=== PATIENT | male | born 1960 | race Caucasian/White ===

== ENCOUNTER 2016-06-19 18:50 | Emergency (ER) | payer OTHER ==
[~2016-06-19] VITALS: Ht 177.8 cm; Wt 113.6 kg
[~2016-06-19 18:50] MED LIST: AMLOD-VALSA-HC1 EAC4 PO; ASPIR 8181 M1 PO; ASPIRIN EC325 MG PO; ATORVASTATIN CA80 MG PO; EFFIENT10 MG PO; EXFORGE HCT 101 EAC2 PO; FORTAMET500 M1 PO; GEMFIBROZIL600 MG PO; GLUCOSAMINE-CH1 EA52 PO; KETOCONAZOLE60 GM TP; LO-DOSE ASPIRIN81 M2 PO; LOPRESSOR50 MG PO; LOSARTAN POTAS100 MG PO; LOTREL 10/21 CAPSULE PO; NITROGLYCERIN0.4 MG SL
[2016-06-19 19:08] LABS: POINT-OF-CARE METER ID UU13113778; POINT-OF-CARE USER ID 611181311
[2016-06-19 19:28] LABS: CHLORIDE 100 mEq/L (99-109); SODIUM 136 mEq/L (136-147)
[2016-06-19 19:31] LABS: GLUCOSE 301 mg/dL (70-99)
[2016-06-19 19:32] LABS: ANION GAP 12 MEQ/L (2-14); HEMATOCRIT 41.5 % (38.0-50.0); MCH 28.5 PG (29.0-34.0); MCHC 36.9 G/DL (30.0-36.0); MCV 77.3 FL (86-99); MEAN PLAT.VOLUME 10.2 uM^3 (9.0-12.4); PLATELET COUNT 300 K/uL (156-360); RBC DIS.WIDTH-CV 13.4 % (11.8-14.6); RBC DIS.WIDTH-SD 37.2 % (39-53); RED BLOOD COUNT 5.37 M/uL (4.00-5.50); TOTAL BILIRUBIN 0.7 mg/dL (0.0-1.0); WHITE BLOOD COUNT 9.7 K/uL (4.1-10.2)
[2016-06-19 19:34] LABS: ALKALINE PHOSPHATASE 114 IU/L (3-129); GFR ESTIMATE (CALCULATED) 52 mL/min/
[2016-06-19 19:35] LABS: UREA NITROGEN (BUN) 22 mg/dL (9-23)
[2016-06-19 19:38] LABS: LIPASE 107 U/L (1.0-51.0)
[2016-06-19 20:27] LABS: POINT-OF-CARE METER ID UU13113800
[2016-06-19 21:00] LABS: ADD MIUA? NO; BILIRUBIN NEGATIVE; BLOOD NEGATIVE; COLOR YELLOW ((YELLOW)); GLUCOSE (STRIP) >=1000; KETONES NEGATIVE; LEUKOCYTES NEGATIVE; NITRITE NEGATIVE; PH, URINE 5.5 (5-8); PROTEIN (STRIP) 30; SPECIFIC GRAVITY 1.032 (1.000-1.030); UCUL ADDED? NO; UROBILINOGEN 0.2 MG/DL (0.2-1.0)
[2016-06-19 21:38] VITALS: BP 117/69
== END 2016-06-19 21:41 | disposition home or self-care (01) ==
LOC: RME 18:50 → EME 18:50 → RME 21:41
PROVIDERS: Nurse Practitioner Family
DX: E11.65 Type 2 diabetes mellitus with hyperglycemia (principal); I10 Essential (primary) hypertension; Z79.84 Long term (current) use of oral hypoglycemic drugs; Z79.82 Long term (current) use of aspirin
CPT/HCPCS: 80053; 81003; 82009; 82948; 83690; 85027; 99281; 99284